=== PATIENT | male | born 1995 | race Two or more races ===

== ENCOUNTER 2018-07-14 22:48 | Emergency (ER) | payer BC ==
[~2018-07-14] VITALS: Ht 175.3 cm; Wt 59.9 kg
[2018-07-14 23:47] VITALS: BP 119/79
[2018-07-14] MEDS ORDERED: IBUPROFEN600 MG ORAL (23:49)
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
[2018-07-15] VITALS: BP 119/79
--- NOTE | 2018-07-15 | NUR ---
ER Nurse Note: Pt seen, treated, medically cleared for discharge by ERMD. Discharge instructions and prescirptions given with repeat verbalization by pt. Instructed pt to follow up with primary care provider within one week. Pt a&ox4, VSS, no signs of distress. ID band removed. All safety measures met; left with all belonings on steady gait via own transportation.
--- NOTE | 2018-07-15 09:39 | Diagnostic Imaging Report ---
Indications: Pain in right forearm after bumping on furniture, trauma Technique: Two views of the right forearm Comparison: None Findings: No acute fractures. No dislocations. No radiopaque foreign body. The joint spaces are preserved Impression: Negative
== END 2018-07-15 | disposition home or self-care (01) ==
LOC: EMR 23:06
DX: S50.11XA Contusion of right forearm, initial encounter (principal); W22.8XXA Striking against or struck by other objects, initial encounter; Y92.9 Unspecified place or not applicable
CPT/HCPCS: 99283